=== PATIENT | male | born 1985 | race African-American/Black ===

== ENCOUNTER 2022-05-23 17:50 | Emergency (ER) | payer OTHER ==
[~2022-05-23] VITALS: Ht 182.9 cm; Wt 111.1 kg
--- NOTE | 2022-05-23 18:42 | NUR ---
TO ER BED 14, BIB [facility] FOR MEDICAL CLEARANCE C/O GROIN AREA AND LOWER BACK PAIN X 3 DAYS, AAOX3, BREATHING EVEN AND NON LABORED, CONNECTED TO MONITOR
--- NOTE | 2022-05-23 19:18 | NUR ---
UNABLE TO PROVIDE URINE AT THIS TIME
[2022-05-23] MEDS ORDERED: KETOROLAC TROMETHAMINE INJ 30 MG/ML VIAL IV ONE (19:30)
[2022-05-23] MEDS ORDERED: KETOROLAC TROMETHAMINE 15 MG/ML VIAL ONE (19:59)
[2022-05-23 20:13] LABS: ALBUMIN 3.1 g/dL (3.4-5.0); BASOPHILS % (AUTO) 0.7 % (0.0-2.0); BILIRUBIN,TOTAL 0.2 mg/dL (0.2-1.0); CALCIUM, SERUM 9.5 mg/dL (8.5-10.1); CREATININE 1.2 mg/dL (0.6-1.3); EOSINOPHILS % (AUTO) 4.9 % (0.0-6.0); HEMATOCRIT 43 % (39-51); HEMOGLOBIN 14.2 g/dL (13.5-17.5); LYMPHOCYTES % (AUTO) 22.3 % (20.0-44.0); MEAN CORPUSCULAR HGB CONC 33 g/dl (31.0-36.0); MEAN CORPUSCULAR VOLUME 80 fL (80-96); MONOCYTES # (AUTO) 0.7 K/uL (0.1-1.30); MONOCYTES % (AUTO) 15.9 % (2.0-12.0); NEUTROPHILS # (AUTO) 2.6 K/uL (1.8-8.9); NEUTROPHILS % (AUTO) 56.2 % (43.0-81.0); PLATELET COUNT (AUTO) 321 K/uL (150-450); POTASSIUM 4.3 mmol/L (3.5-5.1); RED BLOOD CELL COUNT(AUTO) 5.32 MIL/uL (4.5-6.0); WHITE BLOOD COUNT (AUTO) 4.5 K/uL (4.3-11.0)
[2022-05-23 20:26] LABS: BILIRUBIN,URINE NEGATIVE (NEGATIVE); COLOR,URINE YELLOW (YELLOW); LEUKOCYTE ESTERASE ,URINE NEGATIVE (NEGATIVE); NITRITE, URINE NEGATIVE (NEGATIVE); PROTEIN,URINE NEGATIVE (NEGATIVE); UGLUCOSE NEGATIVE (NEGATIVE); UROBILINOGEN,URINE 0.2 EU/dL (0.2)
[2022-05-23 20:51] LABS: EOSINOPHILS % (MANUAL) 3 % (0-4); LYMPHOCYTES % (MANUAL) 24 % (16-48); MONOCYTES % (MANUAL) 10 % (0-11.0); NEUTROPHILS % (MANUAL) 63 (42-76)
[2022-05-23] MEDS ORDERED: FAMOTIDINE/PF INJ 20 MG/2 ML VIAL IV ONE ×2 (22:00→22:06)
[2022-05-23] MEDS ORDERED: MAG HYDROX/AL HYDROX/SIMETH 30 ML UDC PO ONE (22:00)
[2022-05-23] MEDS ORDERED: MAG HYDROX/AL HYDROX/SIMETH 30 ML UDC ONE (22:06)
--- NOTE | 2022-05-23 23:33 | NUR ---
Patient discharged in [facility]'s custody in stable condition. Written and verbal after care instructions given. Patient verbalizes understanding of instruction.
[2022-05-23 23:34] VITALS: BP 131/72
== END 2022-05-23 23:35 ==
LOC: ER 17:57
DX: R07.89 Other chest pain (principal); R21 Rash and other nonspecific skin eruption; R10.13 Epigastric pain; Z90.89 Acquired absence of other organs
CPT/HCPCS: 99285; 96374; 71045; 93005; 85025; 83690; 81003; 36415; 80053; 84484 ×2; 96372; 85007; J3490; J1885